=== PATIENT | male | born 1945 | race Caucasian/White ===

== ENCOUNTER → 2020-02-21 | Outpatient (CLI) | payer OTHER ==
[~2020-02-21] MED LIST: AMARYL2 MG PO; APAP/OXYCODONE1 TA2 PO; COLACE100 MG PO; JANUMET XR 1001 EACH PO; KEFLEX250 MG PO; LATANOPROST2.5 ML OP; LISINOPRIL10 M1 PO; METFORMIN1000 MG PO; NORCO 5-325 TA1 EACH PO; VICODIN 5-3001 EACH PO; ZOFRAN4 MG PO
== END | disposition home or self-care (01) ==
LOC: LAB 14:23
DX: E83.52 Hypercalcemia (principal)

== ENCOUNTER → 2023-09-21 | Outpatient (CLI) | payer OTHER | END | disposition home or self-care (01) | LOC: RESCLI 08:43 | PROVIDERS: ATTEND Internal Medicine | DX: I10 Essential (primary) hypertension (principal); E11.9 Type 2 diabetes mellitus without complications; M54.9 Dorsalgia, unspecified; N52.9 Male erectile dysfunction, unspecified; H40.9 Unspecified glaucoma; G62.9 Polyneuropathy, unspecified; E78.5 Hyperlipidemia, unspecified; Z79.899 Other long term (current) drug therapy; Z98.890 Other specified postprocedural states; Z91.041 Radiographic dye allergy status ==